=== PATIENT | female | born 1960 | race Caucasian/White ===

== ENCOUNTER 2023-01-10 19:25 | Emergency (ER) | payer BC ==
--- OUTSIDE RECORDS SUMMARY | 2023-01-10 19:29 | XMS REPORT | Continuity of Care Document ---
:1960 Author Organization [facility] t Address [address] [place] [address] [place] [address] Care Team Providers Name Role Phone Cam Blair Jr. Primary Care Physician Torres Calderon Attending Clinician Unavailable Morelia Shah Attending Clinician Unavailable Dilip Lan MD Attending Clinician Winsome Roberts MD Attending Clinician Simba Honeycutt CRNA Attending Clinician Lou Monahan MA Attending Clinician Unavailable Briana Cheatham RPH Attending Clinician Unavailable JocelynereJulian ng DO Attending Clinician Darren Soler MD Attending Clinician PEÑA UP Attending Clinician Unavailable Peña Up NP Attending Clinician Yazan Haywood MD Attending Clinician Rm Jara MD Attending Clinician Physician, No Primary Care Admitting Clinician Unavailable Torres Calderon Admitting Clinician Unavailable DILIP LAN Admitting Clinician Unavailable DARREN SOLER Admitting Clinician Unavailable Payers Payer Name Policy Type Policy Number Effective Date Expiration Date Coretta guillermo [employer] [place] [id number] 2020 00:00:00 Problems Condition Condition Condition Status Onset Resolution Last Treating Co mments Source Name Details Category Date Date Treatment Clinician Date Colon Colon Disease Active Overview: Method i cancer cancer 01-05 st screening screening 00:00: g of this H ospita 00 note l might be different from the original. Added automatic ally from request for surgery [id number] Mixed Mixed Disease Active Methodi hyperlipid hyperlipid 12-28 emia emia 00:00: Hospita 00 l Acquired Acquired Disease Active Metho di hypothyroi hypothyroi 12-28 dism dism 00:00: Hospita 00 l Anxiety Anxiety Disease Active Methodi 12-28 st 00:00: Hospita 00 l Cholecysti Cholecysti Disease Active M ethodi tis tis 12-27 st 00:00: Hospita 00 l Allergies, Adverse Reactions, Alerts Allergy Allergy Status Severity Reaction(s) Onset Inactive Treating Comm ents Source Name Type Date Date Clinician codeine DA Active U VOMITING 2021-04 [facility] 0-31 [facility] [place] Codeine Propensi Active Other - See Un madiha ty to comments 12-27 ity of adverse 00:00: [place] reaction 00 [facility] s [facility] CODEINE DRUG Active Other-Cmnt Unive rs INGREDI 12-27 ity of 00:00: [place] 00 Medical [facility] Acetamin Propensi Active Other (See Me thodi ophen-Co ty to Comments) 07-21 st deine adverse 00:00: Hospita reaction 00 l s to drug Family History Family Member Diagnosis Comments Start Date Stop Date Source Natural son [facility] Natural father [facility] Natural mother Heart disease Method[facility]3] Social History Social Habit Start Date Stop Date Quantity Comments Source Gender identity 2021-07-20 Identifies as Method ist 20:11:28 female gender Hospital (finding) Sexual orientation [facility] Alcohol intake 2022-01-17 2022-01-17 Lifetime [facility] 00:00:00 00:00:00 non-drinker Hospital (finding) History of Social 2022-01-17 2022-01-[address] function 00:00:00 00:00:00 Hospital Exposure to 2021-12-17 2021-12-27 Unable to assess Univers ity of SARS-CoV-2 (event) 00:00:00 18:09:00 [facility] Tobacco use and 2021-07-21 2021-07-21 Smokeless tobacco Me [facility] exposure 00:00:00 00:00:00 non-user Hospital Sex Assigned At [birth year] [facility] 00:00:00 00:00:00 Hospital Smoking Status Start Date Stop Date Source Tobacco [facility] Medications Ordered Filled Start Stop Current Ordering Indication Dosage Frequency Signature Comments Components Source Medication Medication Date Date Medication? Clinician (SIG) Name Name norethindro Yes 1{tbl} QD Take 1 Me thodi ne-ethin 9-[address] estradioL 14:37: mouth Hospita (NECON) 54 daily. l 0.5-35 mg-mcg per tablet norethindro Yes 1{tbl} QD Take 1 Me thodi ne-ethin 9-[address] estradioL 14:37: mouth Hospita (NECON) 54 daily. l 0.5-35 mg-mcg per tablet sod Yes [id number] 1{bottl Q.5D Take 1 Met hodi picosulf-ma 9-21 e} Bottle by st g ox-citric 00:00: mouth 2 Hos gege ac 00 (two) l (Clenpiq) times a 10 mg-3.5 day. gram -12 gram/160 mL solution sodium,pota Yes [id number] 1{bottl Q12H Take 1 Methodi ssium,mag 9-21 e} Bottle by st sulfates 00:00: mouth Hospita (Suprep 00 every 12 l Bowel Prep (twelve) Kit) hours. 17.5-3.13-1 Drink 1 .6 gram bottle as recon soln directed for dose 1 and 1 bottle as directed for dose 2. sod Yes [id number] 1{bottl Q.5D Take 1 Met hodi picosulf-ma 9-21 e} Bottle by st g ox-citric 00:00: mouth 2 Hos gege ac 00 (two) l (Clenpiq) times a 10 mg-3.5 day. gram -12 gram/160 mL solution sodium,pota Yes [id number] 1{bottl Q12H Take 1 Methodi ssium,mag 9-21 e} Bottle by st sulfates 00:00: mouth Hospita (Suprep 00 every 12 l Bowel Prep (twelve) Kit) hours. 17.5-3.13-1 Drink 1 .6 gram bottle as recon soln directed for dose 1 and 1 bottle as directed for dose 2. norethindro Yes 1{tbl} QD Take 1 Me thodi ne-ethin [address] estradioL 17:29: mouth Hospita (NECON) 05 daily. l 0.5-35 mg-mcg per tablet pantoprazol 2021- No 40mg QD Take 1 Met hodi e 12-28-06 tablet (40 st (Protonix) 00:00: 04:59 mg total) H ospita 40 MG EC 00 :00 by mouth l tablet daily for 30 days. pantoprazol 2021- No 40mg QD Take 1 Met hodi e 12-28-06 tablet (40 st (Protonix) 00:00: 04:59 mg total) H ospita 40 MG EC 00 :00 by mouth l tablet daily for 30 days. pantoprazol 2021- No 40mg QD Take 1 Met hodi e 12-28-06 tablet (40 st (Protonix) 00:00: 04:59 mg total) H ospita 40 MG EC 00 :00 by mouth l tablet daily for 30 days. rosuvastati Yes Method i n (CRESTOR) 3-22 st 5 mg tablet 00:00: Hospit a 00 l rosuvastati Yes Method i n (CRESTOR) 3-22 st 5 mg tablet 00:00: Hospit a 00 l rosuvastati Yes Method i n (CRESTOR) 3-22 st 5 mg tablet 00:00: Hospit a 00 l progesteron 0 Yes Method i e 2-15 st (PROMETRIUM 00:00: Hospit a ) 100 MG 00 l capsule progesteron 0 Yes Method i e 2-15 st (PROMETRIUM 00:00: Hospit a ) 100 MG 00 l capsule progesteron 2021-0 Yes Method i e 2-15 st (PROMETRIUM 00:00: Hospit a ) 100 MG 00 l capsule sertraline 0 Yes 50mg 50 mg. Metho di (ZOLOFT) 2-11 st 100 MG 00:00: Hospita tablet 00 l sertraline 2021-0 Yes 50mg 50 mg. Metho di (ZOLOFT) 2-11 st 100 MG 00:00: Hospita tablet 00 l sertraline 2021-0 Yes 50mg 50 mg. Metho di (ZOLOFT) 2-11 st 100 MG 00:00: Hospita tablet 00 l Synthroid 0 Yes Methodi 75 mcg 1-08 st tablet 00:00: Hospita 00 l Synthroid 2021-0 Yes Methodi 75 mcg 1-08 st tablet 00:00: Hospita 00 l Synthroid 2021-0 Yes Methodi 75 mcg 1-08 st tablet 00:00: Hospita 00 l Immunizations Ordered Filled Immunization Date Status Comments [facility] e Immunization Name Name PFIZER COVID-19 2020-08-01 Completed [facility] MRNA VACCINATION 00:00:00 [facility] PFIZER COVID-19 2020-08-01 Completed [facility] MRNA VACCINATION 00:00:00 [facility] PFIZER COVID-19 2020-08-01 Completed [facility] MRNA VACCINATION 00:00:00 [facility] SARS-COV-2 COVID-19 2020-08-01 Completed Unive rsity of PFIZER VACCINE 00:00:00 [facility] PFIZER COVID-19 2020-07-11 Completed [facility] MRNA VACCINATION 00:00:00 [facility] PFIZER COVID-19 2020-07-11 Completed [facility] MRNA VACCINATION 00:00:00 [facility] PFIZER COVID-19 2020-07-11 Completed [facility] MRNA VACCINATION 00:00:00 [facility] SARS-COV-2 COVID-19 2020-07-11 Completed Unive rsity of PFIZER VACCINE 00:00:00 [facility] Vital Signs Vital Name Observation Time Observation Value Comments Source Systolic blood 2021-12-27 23:14:00 143 mm[Hg] Univer sity of pressure [facility] Diastolic blood 2021-12-27 23:14:00 91 mm[Hg] Unive rsity of [facility] Heart rate 2021-12-27 23:14:00 67 /min Universi ty [facility] Body temperature 2021-12-27 23:14:00 36.83 Ayaka [facility] Respiratory rate 2021-12-27 23:14:00 18 /min [facility] Body weight 2021-12-27 23:14:00 81.194 kg [facility] Oxygen saturation in 2021-12-27 23:14:00 99 /min University Arterial blood by [facility] Pulse oximetry [place] Systolic blood 2022-01-14 19:15:00 105 mm[Hg] Method [facility] pressure Diastolic blood 2022-01-14 19:15:00 61 mm[Hg] [facility] pressure Heart rate 2022-01-14 19:15:00 53 /min [facility] Oxygen saturation in 2022-01-14 19:15:00 97 /min [facility] Arterial blood by Pulse oximetry Body temperature 2022-01-14 18:56:00 36.11 Ayaka [facility] Respiratory rate 2022-01-14 18:56:00 16 /min [facility] Body height 2022-01-14 16:52:00 172.7 cm [facility] Body weight 2022-01-14 16:52:00 79.379 kg [facility] BMI 2022-01-14 16:52:00 26.61 kg/m2 [facility] BMI 2022-01-08 20:08:00 27.37 kg/m2 [facility] Body height 2022-01-08 20:08:00 172.7 cm [facility] Body weight 2022-01-08 20:08:00 81.647 kg [facility] Systolic blood 2021-12-28 20:18:51 120 mm[Hg] Method [facility] pressure Diastolic blood 2021-12-28 20:18:51 70 mm[Hg] [facility] pressure Heart rate 2021-12-28 20:18:51 67 /min [facility] Body temperature 2021-12-28 20:18:51 37.06 Ayaka [facility] Respiratory rate 2021-12-28 20:18:51 16 /min [facility] Oxygen saturation in 2021-12-28 20:18:51 97 /min [facility] Arterial blood by Pulse oximetry Procedures Procedure Date / Time Performing Clinician Source Performed COLONOSCOPY 2022-01-14 18:30:00 [facility] COLONOSCOPY 2022-01-14 18:28:00 [facility] MRI ABDOMEN W WO CONTRAST 2022-01-08 21:19:31 [facility] aul [facility] HC COMPLETE BLD COUNT 2021-12-28 10:19:00 [facility] W/AUTO DIFF COMPREHENSIVE METABOLIC 2021-12-28 10:19:00 [facility] PANEL ESTIMATED GFR 2021-12-28 10:19:00 [facility] COVID-19 ANTI-SPIKE IGG 2021-12-28 06:30:00 [facility] ANTIBODY TITER LACTIC ACID LEVEL, SEPSIS 2021-12-28 06:30:00 [facility] - NOW AND REPEAT 2X EVERY 3 HOURS HC COMPLETE BLD COUNT 2021-12-28 06:30:00 [facility] W/AUTO DIFF BASIC METABOLIC PANEL 2021-12-28 06:30:00 [facility] HEPATIC FUNCTION PANEL 2021-12-28 06:30:00 [facility] MAGNESIUM LEVEL 2021-12-28 06:30:00 [facility] PHOSPHORUS LEVEL 2021-12-28 06:30:00 [facility] COVID-19 SEROLOGY PATIENT 2021-12-28 06:30:00 [facility] SURVEILLANCE LIPID PANEL 2021-12-28 06:30:00 [facility] THYROID STIMULATING 2021-12-28 06:30:00 [facility] HORMONE T4, FREE 2021-12-28 06:30:00 [facility] ESTIMATED GFR 2021-12-28 06:30:00 [facility] COVID-19 QUALITATIVE 2021-12-28 03:54:00 Rehrer, [facility] RT-PCR LACTIC ACID LEVEL, SEPSIS 2021-12-28 03:54:00 [facility] NOW [facility] REPEAT 2X EVERY 3 HOURS TROPONIN, I-STAT 2021-12-28 03:54:00 [facility] US GALLBLADDER 2021-12-28 02:48:48 Rehrer, [facility] CT ANGIOGRAM ABDOMEN 2021-12-28 02:25:43 Rehrer, [facility] PELVIS W AND OR WO CONTRAST ECG ED PRELIMINARY 2021-12-28 01:45:50 Rehrer, [facility] INTERPRETATION URINALYSIS 2021-12-28 01:43:00 Rehrer, [facility] ECG 12-LEAD 2021-12-28 01:24:34 Rehrer, [facility] COMPREHENSIVE METABOLIC 2021-12-28 01:21:00 Rehrer, [facility] PANEL LACTIC ACID LEVEL, SEPSIS 2021-12-28 01:21:00 [facility] - NOW AND REPEAT 2X EVERY 3 HOURS TROPONIN, I-STAT 2021-12-28 01:21:00 [facility] B NATRIURETIC PEPTIDE 2021-12-28 01:21:00 Rehrer, [facility] LIPASE LEVEL 2021-12-28 01:21:00 Rehrer, [facility] HC COMPLETE BLD COUNT 2021-12-28 01:21:00 Rehrer, [facility] W/AUTO DIFF ESTIMATED GFR 2021-12-28 [facility] URINE CULTURE 2021-12-28 01:19:00 Rehrer, [facility] Plan of Care Planned Activity Planned Date Details Comments Source Future Scheduled 2023-01-10 Screening for [facility] Test 19:27:53 malignant neoplasm of colon (procedure) [code = 512240113] Future Scheduled 2023-01-10 Screening for [facility] Test 19:27:53 malignant neoplasm of colon (procedure) [code = 155393731] Future Scheduled 2023-01-10 Hepatitis C screening [facility] Test 19:27:53 (procedure) [code = 307289901] Future Scheduled 2023-01-10 [facility] for [facility] Test 19:27:53 malignant neoplasm of cervix (procedure) [code = 912729406] Future Scheduled 2023-01-10 BREAST CANCER [facility] Test 19:27:53 SCREENING [code = BREAST CANCER SCREENING] Future Scheduled 2023-01-10 Screening for [facility] Test 19:27:53 malignant neoplasm of colon (procedure) [code = 796256364] Future Scheduled 2023-01-10 SHINGLES VACCINES (1 Met [facility] Test 19:27:53 of 2) [code = SHINGLES VACCINES (1 of 2)] Future Scheduled 2023-01-10 COVID-19 VACCINE (3 - [facility] Test 19:27:53 Pfizer series) [code = COVID-19 VACCINE (3 - Pfizer series)] Future Scheduled 2023-01-10 Screening for [facility] Test 19:27:53 malignant neoplasm of colon (procedure) [code = 285445418] Future Scheduled 2023-01-10 Screening for [facility] Test 19:27:53 malignant neoplasm of colon (procedure) [code = 987858402] Future Scheduled 2023-01-10 HEPATITIS B VACCINES Met [facility] Test 19:27:53 (1 of 3 - Risk 3-dose series) [code = HEPATITIS B VACCINES (1 of 3 - Risk 3-dose series)] Future Scheduled 2023-01-10 INFLUENZA VACCINE Method [facility] Test 19:27:53 (#1) [code = INFLUENZA VACCINE (#1)] Future Scheduled 2022-02-22 Hepatitis C screening [facility] Test 11:07:28 (procedure) [code = 268947292] Future Scheduled 2022-02-22 Screening for [facility] Test 11:07:28 malignant neoplasm of cervix (procedure) [code = 618209302] Future Scheduled 2022-02-22 BREAST CANCER [facility] Test 11:07:28 SCREENING [code = BREAST CANCER SCREENING] Future Scheduled 2022-02-22 COLONOSCOPY SCREENING [facility] Test 11:07:28 [code = COLONOSCOPY SCREENING] Future Scheduled 2022-02-22 SHINGLES VACCINES (1 Met [facility] Test 11:07:28 of 2) [code = SHINGLES VACCINES (1 of 2)] Future Scheduled 2022-02-22 COVID-19 VACCINE (3 - Me [facility] Test 11:07:28 Booster for Pfizer series) [code = COVID-19 VACCINE (3 - Booster for Pfizer series)] Future Scheduled 2022-02-22 INFLUENZA VACCINE Method [facility] Test 11:07:28 [code = INFLUENZA VACCINE] Future Scheduled 2022-02-22 HEPATITIS B VACCINES Met [facility] Test 11:07:28 (1 of 3 - Risk 3-dose series) [code = HEPATITIS B VACCINES (1 of 3 - Risk 3-dose series)] Future Scheduled 2022-01-13 Hepatitis C screening [facility] Test 09:25:12 (procedure) [code = 854818837] Future Scheduled 2022-01-13 Screening for [facility] Test 09:25:12 malignant neoplasm of cervix (procedure) [code = 951968424] Future Scheduled 2022-01-13 BREAST CANCER [facility] Test 09:25:12 SCREENING [code = BREAST CANCER SCREENING] Future Scheduled 2022-01-13 COLONOSCOPY SCREENING [facility] Test 09:25:12 [code = COLONOSCOPY SCREENING] Future Scheduled 2022-01-13 SHINGLES VACCINES (1 Met [facility] Test 09:25:12 of 2) [code = SHINGLES VACCINES (1 of 2)] Future Scheduled 2022-01-13 COVID-19 VACCINE (3 - Me [facility] Test 09:25:12 Booster for Pfizer series) [code = COVID-19 VACCINE (3 - Booster for Pfizer series)] Future Scheduled 2022-01-13 INFLUENZA VACCINE Method [facility] Test 09:25:12 [code = INFLUENZA VACCINE] Future Scheduled 2022-01-13 HEPATITIS B VACCINES Met [facility] Test 09:25:12 (1 of 3 - Risk 3-dose series) [code = HEPATITIS B VACCINES (1 of 3 - Risk 3-dose series)] Encounters Start End Encounter Admission Attending Care Care Encounter Source Date/Time Date/Time Type Type Clinicians Facility Department ID 2019-05-26 Inpatient Torres Foster [facility] [id number] [facility] 00:03:00 24 [facility] 2019-04-30 Inpatient Torres Foster [facility] [id number] [facility] 11:31:00 90 [facility] 2022-02-24 2022-02-24 Outpatient GIANNA Shah [facility] [id number] [facility] 07:15:00 07:15:00 Morelia 90 [facility] 2022-01-14 2022-01-14 [facility], 1.2.840.1 [id number] Methodi 11:25:00 14:35:00 Encounter Dilip 70430.1.[address] [facility] 3.430.2.7 Hospit a .3.690265 l .8 2022-01-14 2022-01-14 [facility], 1.2.840.1 [id number] Methodi 11:25:00 14:35:00 Encounter Dilip 91087.1.[address] [facility] 3.430.2.7 Hospit a .3.201781 l .8 2022-01-14 2022-01-14 Surgery [facility], 1.2.840.1 [id number] Methodi 13:30:00 14:00:[address] [facility] 3.430.2.7 Hospit a .3.779941 l .8 2022-01-14 2022-01-14 Surgery [facility], 1.2.840.1 [id number] Methodi 13:30:00 14:00:[address] [facility] 3.430.2.7 Hospit a .3.843846 l .8 2022-01-14 2022-01-14 Anesthesia Winsome Roberts 1.2.840.1 [id number] Methodi 13:28:00 13:54:00 Event Simba Honeycutt 50277.1.[address] 3.430.2.7 Hospit a .3.930909 l .8 2022-01-14 2022-01-14 Anesthesia Winsome Roberts 1.2.840.1 [id number] Methodi 13:28:00 13:54:00 Event Simba Honeycutt 92940.1.[address] 3.430.2.7 Hospit a .3.487132 l .8 2022-01-14 2022-01-14 Travel 1.2.840.1 1.2.341.220 [id number] Methodi 00:00:00 00:00:[address] 3.430.2.7 0.2.7.3.698 Ho spita .3.752150 084.8 l .8 2022-01-14 2022-01-14 Travel 1.2.840.1 1.2.751.972 1269 [id number] Methodi 00:00:00 00:00:[address] 3.430.2.7 0.2.7.3.698 Ho spita .3.610864 084.8 l .8 2022-01-13 2022-01-13 Transcribe Lan, 1.2.840.1 [id number] Methodi 00:00:00 00:00:00 Orders Dilip 69958.1.[address] [facility] 3.430.2.7 Hospit a .3.868124 l .8 2022-01-13 2022-01-13 Transcribe Lan, 1.2.840.1 [id number] Methodi 00:00:00 00:00:00 Orders Dilip 36317.1.[address] [facility] 3.430.2.7 Hospit a .3.392653 l .8 2022-01-08 2022-01-08 Outpatient Torres Foster [facility] LA0 [id number] [facility] 08:00:00 08:00:00 71 [facility] 2022-01-08 2022-01-08 Outpatient [facility] [id number] [place] 00:00:00 00:00:00 DILIP [address] 2022-01-06 2022-01-06 Transcribe Lan, 1.2.840.1 [id number] Methodi 00:00:00 00:00:00 Orders Dilip 24628.1.[address] [facility] 3.430.2.7 Hospit a .3.714580 l .8 2022-01-05 2022-01-05 Prep for [facility], 1.2.840.1 [id number] Methodi 00:00:00 00:00:00 Surgery Lou 78890.1.[address] 3.430.2.7 Hospit a .3.410082 l .8 2022-01-04 2022-01-04 Prep for [facility], 1.2.840.1 [id number] 2100 [id number] Methodi 00:00:00 00:00:00 Surgery Lou 00829.1.[address] 3.430.2.7 Hospit a .3.093816 l .8 2021-12-30 2021-12-30 Telemedici Lan, 1.2.840.1 [id number] Methodi 16:10:00 16:24:10 ne Dilip 61132.1.[address] [facility] 3.430.2.7 Hospit a .3.900036 l .8 2021-12-30 2021-12-30 Travel 1.2.840.1 1.2.562.468 8551 [id number] Methodi 00:00:00 00:00:[address] 3.430.2.7 0.2.7.3.698 Ho spita .3.708373 084.8 l .8 2021 2021 Patient [place], 1.2.840.1 [id number] Methodi 00:00:00 00:00:00 Outreach Tomaszcelestinewilfredo 56061.1.[address] 3.430.2.7 Hospit a .3.740854 l .8 2021-12-27 2021-12-28 [facility] 1.2.840[facility]1 [id number] Methodi 19:53:00 17:29:00 Encounter Darren Soler 71135.1.[address] 3.430.2.7 Hospit a .3.486298 l .8 2021-12-27 2021-12-27 Emergency X [facility] [id number] Univers 18:15:00 18:46:00 PEÑA michele [facility] 2021-12-27 2021-12-27 Emergency [facility] 1.2.950.716 [id number] [facility] 18:15:00 18:46:00 Peña MAN 350.1.13.10 ryne [facility] 4.2.7.2.686 [facility] [id number] [address] 2021-12-27 2021-12-27 Travel 1.2.840.1 1.2.579.757 7698 [id number] Methodi 00:00:00 00:00:[address] 3.430.2.7 0.2.7.3.698 lissa .3.861207 084.8 l .8 2021-11-17 2021-11-17 Telephone Chastity 1.2.840.1 [id number] Methodi 00:00:00 00:00:00 Yazan Pavon 85718.1.[address] 3.430.2.7 Hospit a .3.130455 l .8 2021-07-21 2021-07-21 Office Marek, 1.2.840.1 [id number] Methodi 08:30:00 08:42:03 Visit Rm Faria 99640.1.1 [address] 3.430.2.7 Hospit a .3.748263 l .8 2021-07-21 2021-07-21 Travel 1.2.840.1 1.2.329.320 [id number] Methodi 00:00:00 00:00:[address] 3.430.2.7 0.2.7.3.698 Ho spita .3.782525 084.8 l .8 2021-07-17 2021-07-17 Travel 1.2.840.1 1.2.595.677 [id number] Methodi 00:00:00 00:00:[address] 3.430.2.7 0.2.7.3.698 Ho spita .3.230248 084.8 l .8 2021-03-18 2021-03-18 Telephone [place], 1.2.840.1 [id number] Methodi 00:00:00 00:00:00 Yazan Esqu[address]Lashay [address] 3.430.2.7 Hospit a .3.536237 l .8 2020-12-11 2020-12-11 Outpatient Torres Foster [facility] LA0 [id number] [facility] 12:00:00 12:00:00 29 [facility] 2019-04-23 2019-04-24 Outpatient Torres Foster [facility] F00 [id number] [facility] 09:24:00 00:00:00 44 [facility] Results Test Description Test Time Test Comments Results Result Comments Source SURGICAL 2022-02-26 17:38:00 Test Item Value Reference Range Interpretation Comme nts SURGICAL RUN (test DATE: 02/26/22 [facility] PAGE 1 RUN TIME: 621 Specimen Inquiry RUN USER: INTERFACE code = CYNDEE SR) ENT: LAMONTE HIGGINBOTHAM ACC T #: [id number] LOC: ARMIDA U #: [id number] AGE/SX: 61/F ROOM: RE02/24/22[facility] DR: Morelia Shah MD : 62 BED: DIS: STATUS: DEP [facility] TLOC: SPEC #: [id number] RECD: 02/24/22 STATUS: MANDY WOODRUFF #: [id number] ADI: 02/24/22 [facility] DR: Morelia Shah ENTERED: 02/24/22 SP TYPE: SURGICAL OTHR DR: Cam Blair MD ORDERED: ANATOMIC SPEC, S [facility], [id number] COPIES TO: Morelia Shah MD 7[address] [facility] [address] [place] [address] 96[address] Cam Blair MD [address] [place] [address] PROCEDURE S: [id number] (02/24/22) TISSUES: A. GALLBLADDER FINAL DIAGNOSIS A. GALLBLADDER, CHOLECYSTECTOMY : - Cholelithiasis - Chronic cholecystitis GROSS DESCRIPTION Received in formalin labeled with Patient's name, , MRN and "gallbladder"; consists of acholecystectomy that is 9.6 x 3 x 2.7 cm; cystic duct measures 0.4 cm length and 0.2 cmdiameter (inked black); the serosal s urface is pale-hua, smooth, glistening; the hepaticresection site is gonzalez-green, roughened and dull; displays a defect that measures 0.3 cmdiameter. The lumen is occupied by multiple dark-gr een, irregularly-shaped, firmgallstones ranging in size from 0.2 x 0.2 x 0.2 cm up to 1.6 x 1.5 x 1.4 cm in greatestdimension. The gallbladder wall averages 0.2 cm thickness, the mucosal surfa ce istan-green, smooth and glistening with multiple gonzalez-red, leathery and dull hemorrhagi cspots. Orchid Transplanter sections are submitted as follows: A1: random 2 sections; A 2: Cystic duct shave margin.XZ 02/24/22 Unless gross only, the diagnosis is based upon microscopic examination .Immunohistochemistry: This test was developed and its performance characteristicsdetermined by this laboratory. It has not been approved nor does it need approval by the CONTINUED ON NEXT PAGE RUN DATE: 02/26/22 [facility] PAGE 2 RUN TIME: 1738 Specimen Inquiry RUN USER: INTERFACE SPEC #: [id number] PATIENT: LAMONTE HIGGINBOTHAM SERRANO #[id number] (Continued) ------- GROSS DESCRIPTION ([place]if[place] arias) [facility]. Appropriate positive and negative controls are reviewed and judged to beacc eptable. This laboratory is certified under the Clinical Laboratory ImprovementAmendments (CLIA- 88) as qualified to perform high complexity clinical laboratory testing. CLINICAL INFORMATION 02/24/22, OUT OF BODY 11 20A, IN FORMALIN 1149A. -- Signed SIGNATURE ON FILE Niru Tucker 1738 END OF REPORT CBC W/AUTO [id number] 13:40:00 Test Item Value Reference Range Interpretation Comments WHITE BLOOD CELL (test code = WBC) 5.8 K/mm3 6.5-12.3 L RED BLOOD CELL (test code = RBC) 4.28 M/mm3 3.51-4.69 N HEMOGLOBIN (test code = HGB) 12.9 g/dL 10.1-13.8 N HEMATOCRIT (test code = HCT) 40.3 % 32.5-41.8 N MEAN CELL VOLUME (test code = MCV) 94.2 fL 84.6-96.6 N MEAN CELL HGB (test code = MCH) 30.1 pg 27.3-33.9 N MEAN CELL HGB CONCETRATION (test 32.0 gm/dL 32.0-34.2 N code = MCHC) RED CELL DISTRIBUTION WIDTH (test 12.4 % 12.2-16.3 N code = RDW) PLATELET COUNT (test code = PLT) 259 K/mm3 134-363 N MEAN PLATELET VOLUME (test code = 9.3 fL 9.2-12.7 N MPV) NEUTROPHIL % (test code = NT%) 59.3 % 57.9-77.3 N LYMPHOCYTE % (test code = LY%) 27.4 % 14.5-29.7 N MONOCYTE % (test code = MO%) 8.7 % 3.6-10.2 N EOSINOPHIL % (test code = EO%) 3.9 % 0.0-3.0 H BASOPHIL % (test code = BA%) 0.5 % 0.1-0.9 N NEUTROPHIL # (test code = NT#) 3.5 K/mm3 LYMPHOCYTE # (test code = LY#) 1.6 K/mm3 MONOCYTE # (test code = MO#) 0.5 K/mm3 EOSINOPHIL # (test code = EO#) 0.23 K/mm3 BASOPHIL # (test code = BA#) 0.0 K/mm3 ECG 12 [id number] 16:20:38 Test Item Value Reference Range Interpretation Comments Ventricular rate (test code = 253) Atrial rate (test code = 255) UT interval (test code = 266) QRSD interval (test code = 260) QT interval (test code = 264) QTC interval (test code = 265) P axis 1 (test code = 267) QRS axis 1 (test code = 268) T wave axis (test code = 270) EKG impression (test Normal sinus code = 273) rhythm-Normal ECG-No previous ECGs available-Electronica lly Signed By Inez Saavedra MD ([id number]) on 12/28/2021 11:20:37 AM [facility] [place] [facility] [id number] 16:20:38 Test Item Value Reference Range Interpretation Comments Ventricular rate (test code = 253) Atrial rate (test code = 255) UT interval (test code = 266) QRSD interval (test code = 260) QT interval (test code = 264) QTC interval (test code = 265) P axis 1 (test code = 267) QRS axis 1 (test code = 268) T wave axis (test code = 270) EKG impression (test Normal sinus code = 273) rhythm-Normal ECG-No previous ECGs available-Electronica lly Signed By Inez Saavedra MD ([id number]) on 12/28/2021 11:20:37 AM Kasia CannonARS-CoV-2 (COVID-19) RNA [Presence] in Respiratory specimen by DOMENIC with probe [id number] 23:35:02 Test Item Value Reference Range Interpretation Comments SARS-CoV-2 (COVID-19) RNA Not detected [Presence] in Respiratory specimen by DOMENIC with probe detection (test code = 58814-1) Whether patient is employed in a Unknown healthcare setting (test code = 40132-5) Whether the patient has symptoms Unknown related to condition of interest (test code = 10798-1) Whether the patient was Unknown hospitalized for condition of interest (test code = 93221-0) Whether the patient was admitted Unknown to intensive care unit (ICU) for condition of interest (test code = 47399-4) Whether patient resides in a Unknown congregate care setting (test code = 82997-8) status (test code = Unknown 21595-3) Date and time of symptom onset Unknown (test code = 04274-6) ETTA SAVAGE Notes Date/Time Note Provider Source 2022-02-24 11:47:00-00:00 [facility] ([facility]) Full Op Note REPORT#:[id number] REPORT STATUS: Signed DATE:02/24/22 TIME: 1147 PATIENT: LAMONTE HIGGINBOTHAM UNIT #: [id number] ROOM/BED: : 62 AGE: 61 SEX: F ATTEND: Sharon Shah MD ADM AUTHOR: Morelia Shah MD * ALL edits or amendments must be made on the [employer]/computer document * Operative Report Start date: 02/24/22 Start time: 1050 Pre-procedure diagnosis: Biliary colic Post-procedure diagnosis: Biliary colic Procedures performed: Robotic cholecystectomy Technique/Procedure: see below Primary Surgeon: Dr. Morelia Shah Manager Wind(s): Saad Echeverria Anesthesia: general anesthesia Operative findings: Normal biliary anatomy Gallstones Complications: none Estimated blood loss in ml's: 20 cc Specimens removed/altered: gallbladder Implant(s): none Fluids: 700 cc Free Text Op Notes Free Text Op Notes: After the risks, benefits, a nd alternatives were explained to her, she was given the opportunity to ask quest ions and she signed consent. She was brought to the operating room and placed in the supine position and intubated by the anesthesia team. Antibiotics were administered and the abdo men was prepped and draped in the usual sterile fashion. A time-out procedure was then performed. Using an 11 blade scalpel, a midline infraumbili cinthia incision was made. Blunt dissection was carried down to the fasci a, which was grasped with a Martha and retracted upwards. The fasci a was divided with an 11 blade and the abdomen thus entered. The mini GelPOINT was placed into the a bdomen, which was then insufflated to 15 mmHg. A robotic trocar was inserted through the GelPOINT and the camera placed in the abdomen. Under direct v ision, a robotic trocar was placed in the right mid abdomen and also under direct vision, a robotic trocar was placed in the left mid abdomen. The patient was positioned in reverse Trendelenburg and rotated toward the left. The r obot was then docked and I assumed control of the robot at the console. Through the mini GelPOINT, the gallbladder was g rasped with a retractor and brought up towards the top of the liver towards the patient's right shoulder. The infundibulum was grasped and retracted later ally. Using the hook cautery, the cystic duct and artery were skeletonized. On ce the critical view was obtained, these structures were doubly clipped p roximally, singly clipped distally, and divided between the double and single clips. The gallbladder was then removed from the fossa with the electrocaut faby. At this point, the robot was undocked and I scrubbed back into the case. The robotic trocars were removed and the gallbla dder was brought from the GelPOINT. The GelPOINT itsel f was then removed. The fascia at the infraumbilical incision was closed with 0 Vicryl and at this in cision, a layer of 3-0 Vicryl deep sutures were then placed and the skin was c losed with 4-0 Monocryl. The robotic trocar sites were closed with interrupte d 4-0 Monocryl only. Approximately 30 mL of 0.25% Marcaine wa s infiltrated into the soft tissue for local anesthesia. The abdomen was cleaned; Gates acosta was applied. The patient was then extubated and brought from the operating room in stable condition. Of note, all the sponge, lap, a nd instrument counts were correct at the conclusion of the procedure. at 1153 RPT #:[id number] END OF REPORT
[2023-01-10] MEDS ORDERED: FENTANYL CITR 100 MCG/2 ML ONE (19:58)
[2023-01-10] MEDS ORDERED: NA CHLORIDE 0.9% 500 ML ONE (19:59)
[2023-01-10] MEDS ORDERED: ONDANSETRON 4 MG/2 ML VIAL ONE (19:59)
[2023-01-10] MEDS ORDERED: ETOMIDATE 20 MG/10 ML VIAL IV ONE ×2 (20:52→21:10)
[2023-01-10] MEDS ORDERED: MIDAZOLAM HCL 2 MG/2 ML INJ ONE ×2 (21:10→21:16)
--- NOTE | 2023-01-10 21:25 | RAD REPORT ---
EXAM DESCRIPTION: RAD - Ankle Right 2 View - 01/10/2023 8:42 pm CLINICAL HISTORY: Pain;Deformity COMPARISON: No comparisons TECHNIQUE: Right ankle, 3 views. FINDINGS: Comminuted displaced trimalleolar fracture. Posterior and lateral subluxation of the talar dome. Soft tissue swelling. No joint effusion seen. No joint space narrowing. No soft tissue abnorma lity. IMPRESSION: Comminuted and displaced trimalleolar fracture.
[2023-01-10] MEDS ORDERED: HYDROCODONE/APAP 10/325 TAB ONE (21:56)
[2023-01-10] MEDS ORDERED: PROMETHAZINE 25 MG TABLET ONE (21:56)
--- NOTE | 2023-01-10 22:09 | RAD REPORT ---
EXAM DESCRIPTION: RAD - Foot Right 2 View - 01/10/2023 9:45 pm CLINICAL HISTORY: right ankle fracture COMPARISON: No comparisons TECHNIQUE: Right foot, 3 views. FINDINGS: Fiberglass splint in place, limits evaluation of fine bony and soft-tissue detail. Trimalleolar fractures again seen, better evaluated on radiographs of the tibia and fibula. No air or foreign body in the soft tissues. IMPRESSION: Trimalleolar fractures, better evaluated on radiographs of the tibia and fibula.
--- NOTE | 2023-01-10 22:24 | RAD REPORT ---
EXAM DESCRIPTION: RAD - Tib Fib Right - 01/10/2023 9:45 pm CLINICAL HISTORY: post reduction COMPARISON: Ankle Right 2 View dated 01/10/2023 TECHNIQUE: Right tibia and fibula, 2 views. FINDINGS: Improved alignment of previously visualized trimalleolar fracture following placement of f iberglass splint. No other acute or suspicious bony finding. No foreign body or gas. Persistent soft tissue swelling about the ankle. IMPRESSION: Improved alignment of trimalleolar fracture fragments.
--- NOTE | 2023-01-10 22:28 | ER ---
Nurse's Notes [facility] Name: Jeny Moore Age: 62 yrs Sex: Female : 1960 Arrival Date: 01/10/2023 Time: 19:25 Bed 7 Private MD: Diagnosis: Right distal fibula fracture, right trimalleolar ankle fracture, right ankle fracture dislocation. Presentation: 01/10 19:31 Chief complaint: Patient states: right ankle injury stepped off deck and ankle buckled. Coronavirus screen: Vaccine status: Patient reports receiving the 2nd dose of the covid vaccine. Ebola Screen: Patient negative for fever greater than or equal to 101.5 degrees Fahrenheit, and additional compatible Ebola Virus Disease symptoms. Initial Sepsis Screen: Does the patient meet any 2 criteria? No. Patient's initial sepsis screen is negative. Does the patient have a suspected source of infection? No. Patient's initial sepsis screen is negative. Initial Sepsis Screen:. Risk Assessment: Do you want to hurt yourself or someone else? Patient reports no desire to harm self or others. Onset of symptoms was January 10, 2023 at 18:30. Care prior to arrival: Splint applied. Medication(s) given: zofran fentanyl 100mcg IV initiated. 20 GA, in the left antecubital area. 19:31 Method Of Arrival: EMS: [facility] 19:31 Acuity: SHIRLEY 3 kl Triage Assessment: 19:37 General: Appears uncomfortable, Behavior is calm, cooperative. Pain: Complains of pain kl in right ankle, right Achilles and anterior aspect of right ankle Pain currently is 4 out of 10 on a pain scale. at worst was 10 out of 10 on a pain scale. Neuro: No deficits noted. Cardiovascular: No deficits noted. Respiratory: No deficits noted. GI: No deficits noted. No signs and/or symptoms were reported involving the gastrointestinal system. : No deficits noted. Musculoskeletal: Circulation, motion, and sensation intact. Capillary refill < 3 seconds, Swelling. Historical: - Allergies: 19:34 No Known Allergies; kl - Home Meds: 19:34 levothyroxine oral [Active]; sertraline oral [Active]; statin [Active]; kl - PMHx: 19:34 Hypothyroidism; high cholesterol; kl - PSHx: 19:34 Cholecystectomy; kl - Immunization history:: Adult Immunizations not up to date. - Social history:: Smoking status: Patient denies any tobacco usage or history of. Screenin:39 [facility] ED Fall Risk Assessment (Adult) History of falling in the last 3 months, kl including since admission Yes- single mechanical fall (1 pt) Confusion or Disorientation No (0 pts) Intoxicated or Sedated No (0 pts) Impaired Gait Yes (1 pt) Mobility Assist Device Used Yes (1 pt) Altered Elimination No (0 pt) Score/Fall Risk Level 3 or more points = High Risk Oriented to surroundings, Maintained a safe environment, Educated pt \T\ family on fall prevention, incl call for assistance when getting out of bed. Abuse screen: Denies threats or abuse. Nutritional screening: No deficits noted. Tuberculosis screening: No symptoms or risk factors identified. Assessment: 19:40 Reassessment: see triage assessment. 20:35 Reassessment: Patient appears in no apparent distress at this time. No changes from [facility] previously documented assessment. Patient and/or family updated on plan of care and expected duration. Pain level reassessed. Patient is alert, oriented x 3, equal unlabored respirations, skin warm/dry/pink. 21:10 Reassessment: Patient appears in no apparent distress at this time. Patient and/or jw7 family updated on plan of care and expected duration. Pain level reassessed. Patient is alert, oriented x 3, equal unlabored respirations, skin warm/dry/pink. see conscious sedation flow sheet. . 22:09 Neuro: Krishnan Agitation-Sedation Scale (RASS): 0 - Alert and Calm Level of jw7 Consciousness is awake, alert, obeys commands, Oriented to person, place, time, situation. 22:45 General: Appears in no apparent distress. comfortable, Behavior is calm, cooperative. jw7 Neuro: Krishnan Agitation-Sedation Scale (RASS): 0 - Alert and Calm Level of Consciousness is awake, alert, obeys commands, Oriented to person, place, time, situation. Cardiovascular: Capillary refill < 3 seconds Patient's skin is warm and dry. Cardiovascular: Respiratory: No deficits noted. Airway is patent Trachea midline Respiratory effort is even, unlabored, Respiratory pattern is regular, symmetrical. GI: No deficits noted. : No deficits noted. EENT: No deficits noted. Derm: No deficits noted. Musculoskeletal: Circulation, motion, and sensation intact. Range of motion: limited in left ankle Swelling absent. Vital Signs: 19:31 BP 99 / 72; Pulse 70; Resp 18; Temp 98.8(O); Pulse Ox 97% on R/A; Weight 79.38 kg; kl Height 5 ft. 8 in. ; Pain 4/10; 20:00 BP 111 / 77; Pulse 72; Resp 16 S; Pulse Ox 100% on R/A; jw7 21:00 BP 120 / 75; Pulse 87; Resp 18 S; Pulse Ox 100% on 4 lpm NC; jw7 22:00 BP 117 / 68; Pulse 65; Resp 14; Pulse Ox 100% on 4 lpm NC; jw7 22:30 BP 122 / 66; Pulse 65; Resp 15 S; Pulse Ox 100% on R/A; jw7 19:31 Body Mass Index 26.61 (79.38 kg, 172.72 cm) kl 19:31 Pain Scale: Adult kl ED Course: 19:29 Patient arrived in ED. jw7 19:34 Triage completed. kl 19:35 Joslyn Noble, RN is Primary Nurse. jw7 19:35 Patrica Altamirano FNP-C is PHCP. kb 19:35 Elvin Davis MD is Attending Physician. kb 19:38 Maintain EMS IV. Dressing intact. Good blood return noted. Site clean \T\ dry. Gauge \T\ kl site: 20 gauge left ac. 20:37 Attending Physician role handed off by Elvin Davis MD sp4 20:37 Thomas Spaulding MD is Attending Physician. sp4 20:44 Ankle Right 2 View In Process Unspecified. EDMS 20:45 Assist provider with fracture care of right ankle Fracture is closed. Obvious deformity jw7 is noted. Circulation, motor and sensation is intact. Set up for procedure. Performed by Thomas Spaulding MD Reduced with physical manipulation. Immobilized with preformed splint, Post immobilization, circulation, motor and sensation remain intact. Patient tolerated well. 21:45 Foot Right 2 View In Process Unspecified. EDMS 21:47 Tib Fib Right XRAY In Process Unspecified. EDMS 22:03 Arm band placed on. jw7 22:03 Patient has correct armband on for positive identification. Bed in low position. Call jw light in reach. Side rails up X2. 22:27 Cesar Solano MD is Referral Physician. sp4 22:58 IV discontinued, intact, bleeding controlled, No redness/swelling at site. Pressure jw7 dressing applied. 22:58 Provided Education on: discharge instructions, medications, and follow-up. jw7 Administered Medications: 19:53 Drug: fentaNYL (PF) IVP 50 mcg IVP once Route: IVP; Site: left antecubital; kl 22:59 Follow up: Response: No adverse reaction; Marked relief of symptoms jw7 19:53 Drug: Ondansetron IVP 4 mg IVP once; over 2 minutes Route: IVP; Site: left antecubital; kl 22:59 Follow up: Response: No adverse reaction; Marked relief of symptoms jw7 19:53 Drug: NS 0.9% IV 1000 ml IV at 1000 ml once Route: IV; Rate: 1000 ml; Site: left kl antecubital; 22:59 Follow up: Response: No adverse reaction; IV Status: Completed infusion; IV Intake: jw7 1000ml 20:50 Drug: Etomidate IVP 20 mg IVP once Route: IVP; Site: left antecubital; jw7 23:00 Follow up: Response: No adverse reaction jw7 20:54 Drug: Midazolam IVP or IV 4 mg IVP once Route: IVP; Site: left antecubital; jw7 23:00 Follow up: Response: No adverse reaction jw7 20:56 Drug: Etomidate IVP 10 mg IVP once Route: IVP; Site: left antecubital; jw7 23:00 Follow up: Response: No adverse reaction jw7 21:47 Drug: Barnum PO 10 mg-325 mg 1 tabs PO once Route: PO; jw7 23:00 Follow up: Response: No adverse reaction jw7 21:47 Drug: Promethazine PO 25 mg PO once Route: PO; jw7 23:00 Follow up: Response: No adverse reaction jw7 Medication: 22:59 VIS not applicable for this client. jw7 Intake: 22:59 IV: 1000ml; Total: 1000ml. jw7 Outcome: 22:28 Discharge ordered by . sp4 22:58 Discharged to home via wheelchair, with family, jwBrad 22:58 Condition: stable 22:58 Discharge instructions given to patient, family, Instructed on discharge instructions, follow up and referral plans. medication usage, Demonstrated understanding of instructions, follow-up care, medications, Prescriptions given X 4, 23:01 Patient left the ED. jw7 Signatures: Dispatcher [employer] EDMS Patrica Altamirano, FOOD TESTER-C FOOD TESTER-CkNeelam Newton RN RN kl Waits, Jodi, RN RN jw7 Thomas Spaulding MD MD sp4
--- NOTE | 2023-01-10 22:28 | EDPHYS ---
Physician Documentation [facility] Name: Jeny Moore Age: 62 yrs Sex: Female : 1960 Arrival Date: 01/10/2023 Time: 19:25 Bed 7 Private MD: ED Physician Thomas Spaulding HPI: 01/10 20:37 This 62 yrs old Female presents to ER via EMS with complaints of Right ankle sp4 pain . 20:37 This 62 yrs old Female presents to ER via EMS with complaints of ankle pain. kb 20:37 The patient presents with decreased range of motion, a deformity, an injury, pain, kb tenderness. The complaints affect the right ankle. Onset: The symptoms/episode began/occurred just prior to arrival. Context: The problem was sustained outdoors, resulted from stepped off of a deck and ankle popped, The patient is unable to bear weight. The patient is not able to ambulate. Associated signs and symptoms: Pertinent positives: swelling. Modifying factors: The symptoms are alleviated by nothing, the symptoms are aggravated by weight bearing, movement. Severity of symptoms: At their worst the symptoms were moderate, in the emergency department the symptoms are unchanged. The patient has not experienced similar symptoms in the past. The patient has not recently seen a physician. Historical: - Allergies: 19:34 No Known Allergies; kl - Home Meds: 19:34 levothyroxine oral [Active]; sertraline oral [Active]; statin [Active]; kl - PMHx: 19:34 Hypothyroidism; high cholesterol; kl - PSHx: 19:34 Cholecystectomy; kl - Immunization history:: Adult Immunizations not up to date. - Social history:: Smoking status: Patient denies any tobacco usage or history of. ROS: 20:03 Constitutional: Negative for fever, chills, and weight loss, kb 20:03 MS/extremity: Positive for injury or acute deformity, decreased range of motion, deformity, pain, tenderness, of the right ankle, 20:03 All other systems are negative, Exam: 20:03 Constitutional: This is a well developed, well nourished patient who is awake, alert, kb and in no acute distress. Head/Face: Normocephalic, atraumatic. ENT: Moist Mucous membranes Cardiovascular: Regular rate Respiratory: Respirations even and unlabored. No increased work of breathing. Talking in full sentences Skin: Warm, dry with normal turgor. Normal color. Neuro: Awake and alert, GCS 15, oriented to person, place, time, and situation. Moves all extremities. Normal gait. 20:03 Musculoskeletal/extremity: Extremities: grossly normal except: noted in the right ankle: decreased ROM, deformity, pain, swelling, tenderness, ROM: limited active range of motion, limited passive range of motion, limited active range of motion due to pain, limited passive range of motion due to pain, Circulation is intact in all extremities. Sensation intact. Weight bearing: is unable to bear weight, Vital Signs: 19:31 BP 99 / 72; Pulse 70; Resp 18; Temp 98.8(O); Pulse Ox 97% on R/A; Weight 79.38 kg; kl Height 5 ft. 8 in. ; Pain 4/10; 20:00 BP 111 / 77; Pulse 72; Resp 16 S; Pulse Ox 100% on R/A; jw7 21:00 BP 120 / 75; Pulse 87; Resp 18 S; Pulse Ox 100% on 4 lpm NC; jw7 22:00 BP 117 / 68; Pulse 65; Resp 14; Pulse Ox 100% on 4 lpm NC; jw7 22:30 BP 122 / 66; Pulse 65; Resp 15 S; Pulse Ox 100% on R/A; jw7 19:31 Body Mass Index 26.61 (79.38 kg, 172.72 cm) kl 19:31 Pain Scale: Adult kl MDM: 19:35 Patient medically screened. kb 20:04 Differential diagnosis: fracture, sprain, dislocation. Data reviewed: vital signs, kb nurses notes. 20:38 Historians other than the Patient: EMS: [facility]. kb 01/10 20:02 Order name: Ankle Right 2 View; Complete Time: 22:26 EDMS 01/10 21:15 Order name: Tib Fib Right XRAY; Complete Time: 22:26 sp4 01/10 21:45 Order name: Foot Right 2 View; Complete Time: 22:26 EDMS 01/10 20:38 Order name: Moderate Sedation; Complete Time: 21:17 sp4 01/10 21:39 Order name: Crutches; Complete Time: 21:59 sp4 01/10 21:39 Order name: Crutch Training; Complete Time: 21:59 sp4 01/10 21:39 Order name: Splint - Long Leg: Posterior w/ Stirrup; Complete Time: 21:40 sp4 Administered Medications: 19:53 Drug: fentaNYL (PF) IVP 50 mcg IVP once Route: IVP; Site: left antecubital; kl 22:59 Follow up: Response: No adverse reaction; Marked relief of symptoms jw7 19:53 Drug: Ondansetron IVP 4 mg IVP once; over 2 minutes Route: IVP; Site: left antecubital; kl 22:59 Follow up: Response: No adverse reaction; Marked relief of symptoms jw7 19:53 Drug: NS 0.9% IV 1000 ml IV at 1000 ml once Route: IV; Rate: 1000 ml; Site: left kl antecubital; 22:59 Follow up: Response: No adverse reaction; IV Status: Completed infusion; IV Intake: jw7 1000ml 20:50 Drug: Etomidate IVP 20 mg IVP once Route: IVP; Site: left antecubital; jw7 23:00 Follow up: Response: No adverse reaction jw7 20:54 Drug: Midazolam IVP or IV 4 mg IVP once Route: IVP; Site: left antecubital; jw7 23:00 Follow up: Response: No adverse reaction jw7 20:56 Drug: Etomidate IVP 10 mg IVP once Route: IVP; Site: left antecubital; jw7 23:00 Follow up: Response: No adverse reaction jw7 21:47 Drug: Lockhart PO 10 mg-325 mg 1 tabs PO once Route: PO; jw7 23:00 Follow up: Response: No adverse reaction jw7 21:47 Drug: Promethazine PO 25 mg PO once Route: PO; jw7 23:00 Follow up: Response: No adverse reaction jw7 Disposition: 20:13 Co-signature as Attending Physician, Elvin Davis MD I agree with the assessment and cp3 plan of care. Disposition Summary: 01/10/23 22:28 Discharge Ordered Problem: new sp4 Symptoms: have improved sp4 Condition: Stable sp4 Diagnosis - Right distal fibula fracture, right trimalleolar ankle fracture, right ankle sp4 fracture dislocation. Followup: sp4 - With: Cesar Solano MD - When: 1 - 2 days - Reason: Recheck today's complaints Discharge Instructions: - Discharge Summary Sheet sp4 - Ankle Fracture Rehab sp4 Forms: - Prescription Opioid Use sp4 - Patient Portal Instructions sp4 Prescriptions: - Crutches - One pair of Adult crutches; ; Refills: 0, Product Selection Permitted sp4 - acetaminophen-codeine 300-30 mg Oral tablet - take 2 tablet by ORAL route every 6 hours PRN pain; 20 tablet; Refills: 0, sp4 Product Selection Permitted - Ibuprofen 800 mg Oral Tablet - take 1 tablet by ORAL route every 8 hours As needed take with food; 30 tablet; sp4 Refills: 0, Product Selection Permitted - Cyclobenzaprine 10 mg Oral Tablet - take 1 tablet by ORAL route every 8 hours As needed; 30 tablet; Refills: 0, sp4 Product Selection Permitted - Tramadol 50 mg Oral Tablet - take 1 tablet by ORAL route every 8 hours as needed; 20 tablet; Refills: 0, sp4 Product Selection Permitted Signatures: Dispatcher [employer] EDPatrica Quach, FROG FARMER-C FROG FARMER-CkNeelam Newton RN RN kl Pinckney, Cwanza, MD MD cp3 Joslyn Noble RN RN jw7 Thomas Spaulding MD MD sp4 Corrections: (The following items were deleted from the chart) 20:02 19:41 Ankle Right 3 View+RAD.RAD.BRZ ordered. EDMS EDMS 21:45 21:16 Foot Right 3 View+RAD.RAD.BRZ ordered. EDMS EDMS 21:46 21:16 Knee Right 3 View+RAD.RAD.BRZ ordered. EDMS EDMS
[2023-01-11 01:24] VITALS: TEMP 98.8
[2023-01-11 01:25] VITALS: O2SAT 100
[2023-01-11 01:29] VITALS: BP 122/66
== END 2023-01-10 23:01 | disposition home or self-care (01) ==
LOC: ER 19:25
PROC: 2W3QX1Z Immobilization of Right Lower Leg using Splint (ICD-10-PCS; principal; 2023-01-10)
DX: S82.851A Displaced trimalleolar fracture of right lower leg, initial encounter for closed fracture (principal); S82.831A Other fracture of upper and lower end of right fibula, initial encounter for closed fracture
CPT/HCPCS: 73620; 73590; 73600; 29505; Q0169; J2250 ×2; J3010; J2405; J7040